=== PATIENT | female | born 1985 | race Caucasian/White ===

== ENCOUNTER 2019-05-18 16:50 | Emergency (ER) | payer OTHER ==
[~2019-05-18] VITALS: Ht 157.5 cm; Wt 62.2 kg
[2019-05-18 16:51] VITALS: BP 131/87
[2019-05-18] MEDS ORDERED: ARNI1LIQ XX (16:56)
[2019-05-18] MEDS ORDERED: METH1TAB40 PO (17:28)
[2019-05-18] MEDS ORDERED: IBUP-1022 PO (17:28)
[2019-05-18] MEDS ORDERED: LIDO5DIS41 TD (17:28)
[2019-05-18] MEDS ORDERED: IBUPROFEN 600 MG TAB PO ONE (17:30)
[2019-05-18] MEDS ORDERED: METHOCARBAMOL 750 MG TAB PO ONE (17:30)
[2019-05-18] MEDS ORDERED: LIDOCAINE 5% (LIDODERM) PATCH TD ONE (17:30)
[2019-05-18] MEDS ORDERED: **NOTE PATIENT COMMENT** MISC XX SCH (21:00)
== END 2019-05-18 17:38 | disposition home or self-care (01) ==
LOC: M ED 16:50
DX: S16.1XXA Strain of muscle, fascia and tendon at neck level, initial encounter (principal); X58.XXXA Exposure to other specified factors, initial encounter; Y92.89 Other specified places as the place of occurrence of the external cause; M62.89 Other specified disorders of muscle